=== PATIENT | female | born 1980 | race Caucasian/White ===

== ENCOUNTER 2019-11-16 19:10 | Emergency (ER) | payer OTHER, SELFPAY ==
--- NOTE | 2019-11-16 19:19 | ED.GENADULT ---
HPI - General Adult General Chief complaint: Urogenital-Female Stated complaint: UTI Time Seen by Provider: 11/16/19 19:19 Source: patient Mode of arrival: ambulatory Limitations: no limitations History of Present Illness HPI narrative: 39-year-old female patient presents to the [facility] with complaints of urinary symptoms that started about 5:00 this afternoon. Patient states she has had burning with urination and she noted a little bit of blood in her urine. Patient states that she does have a history of getting frequent UTIs that, on progress very quickly. Denies any fevers, nausea vomiting or diarrhea. Patient denies any low back pain but states she has had some lower abdominal pressure. Related Data Home Medications Medication Instructions Recorded Confirmed gabapentin 300 mg PO DAILY 11/16/19 11/16/19 levothyroxine 75 mcg PO DAILY 11/16/19 11/16/19 sertraline 50 mg PO DAILY 11/16/19 11/16/19 trazodone 50 mg PO DAILY 11/16/19 11/16/19 Allergies Allergy/AdvReac Type Severity Reaction Status Date / Time erythromycin base Allergy Unknown Nausea Verified 11/16/19 19:25 Sulfa (Sulfonamide Allergy Unknown -rash Verified 11/16/19 19:25 Antibiotics) Review of Systems Review of Systems: Narrative: CONSTITUTIONAL: Denies fever, chills, or sweats. EYES: Denies visual changes, redness, or discharge. ENT: Denies rhinorrhea, congestion, sore throat, or otalgia. CARDIOVASCULAR: Denies chest pain, palpitations, or edema. RESPIRATORY: Denies cough or dyspnea. GASTROINTESTINAL: Denies abdominal pain, nausea, vomiting, or diarrhea. GENITOURINARY: Positive dysuria or hematuria. SKIN: Denies rash or itching. MUSCULOSKELETAL: Denies back pain, joint pain, or myalgia. NEUROLOGIC: Denies headache, numbness, or weakness. PSYCHIATRIC: Denies anxiety or depression. [facility] Past Medical History Medical History (Updated 11/16/19 @ 19:40 by ALYCIA Gaspar) Anxiety Depression Hypothyroidism Urinary tract infection Family History Family History Mother Family history of migraine headaches Hypertension Family history of liver disease Family history of hepatitis Family history of arthritis Family history of elevated blood lipids Family history of blood dyscrasia Grandparent Hypertension Family history of cardiovascular disease Family history of malignant neoplasm Family history of malignant neoplasm of breast, Onset Age: 54 Family history of malignant neoplasm of ovary Family history of heart disease in male family member before age 55, Onset Age: 63 Father Colon polyp, Onset Age: 60 Social History Social History Smoking status: Never smoker Second hand tobacco smoke exposure: No Alcohol intake: current Comments At the time of my signature I agree with nursing past medical history, surgical, social, and family history. There is no relevant family history pertinent to the presenting complaint. Exam Narrative: Exam Narrative: GENERAL: Well-appearing, well-nourished, and in no acute distress. HEAD: Normocephalic, atraumatic. EYES: PERRLA and EOMI. ENT: Nares clear, no rhinorrhea or epistaxis. Mucous membranes moist. NECK: Supple. No lymphadenopathy CHEST: Clear to auscultation. No respiratory distress. HEART: Regular rate and rhythm. No murmur heard. Normal peripheral pulses. ABDOMEN: Soft, nontender, nondistended, normal active bowel sounds. No CVA tenderness on percussion EXTREMITIES: Normal range of motion. No edema. SKIN: Warm, dry, no rash. NEURO: No focal deficits. Alert and oriented x3. Course Vital Signs Vital signs: Vital Signs Temperature 36.9 C 11/16/19 19:26 Pulse Rate 66 11/16/19 19:26 Respiratory Rate 16 11/16/19 19:26 Blood Pressure 125/77 11/16/19 19:26 Pulse Oximetry 100 11/16/19 19:26 Temperature 36.9 C 11/16/19 19:26 Pulse
[2019-11-16 19:26] VITALS: BP 125/77; PULSE 66; RESP 16; TEMP 36.9; O2SAT 100
== END 2019-11-16 19:40 | disposition home or self-care (01) ==
PROVIDERS: Emergency Provider Nurse Practitioner Family
DX: N30.01 Acute cystitis with hematuria (principal); F41.9 Anxiety disorder, unspecified; F32.9 Major depressive disorder, single episode, unspecified; E03.9 Hypothyroidism, unspecified
CPT/HCPCS: 81003; 87077; 87086; 87088; 87186; 99213; G0463